=== PATIENT | female | born 1985 | race Caucasian/White ===

== ENCOUNTER → 2025-02-08 | Outpatient (CLI) | payer MEDICAID, SELFPAY ==
--- NOTE | 2025-02-08 09:30 | XR_ITS ---
Examination: Esophagram standard Fluoroscopy 22 spot fluoroscopic films of the esophagus Upright PA chest single view Soft tissue lateral neck single view Date and time: February 08, 2025 0925 hours INDICATIONS: Difficulty swallowing beginning 4 months ago TECHNIQUE AND FINDINGS: Upright PA chest single view demonstrates normal heart size clear lungs Soft tissue lateral neck demonstrates normal epiglottis Patient swallowed thin barium with 20 spot fluoroscopic films of the esophagus obtained, fluoroscopy 0.12 minutes Primary peristaltic waves noted Moderate intermittent gastroesophageal reflux. There is no constricting esophageal lesion. Small esophageal hernia IMPRESSION: Moderate intermittent gastroesophageal reflux. There is no constricting esophageal lesion
== END | disposition home or self-care (01) ==
LOC: CDIM 10:02
PROVIDERS: PCP Physician Assistant; Referring Provider Physician Assistant; Visit Provider Physician Assistant
DX: K21.9 Gastro-esophageal reflux disease without esophagitis (principal)
CPT/HCPCS: 74220; A4649